=== PATIENT | male | born 2000 | race Caucasian/White ===

== ENCOUNTER 2021-04-27 16:42 | Emergency (ER) | payer OTHER ==
[~2021-04-27] VITALS: Ht 170.2 cm; Wt 81.7 kg
[2021-04-27] MEDS ORDERED: REMERON15 MG PO (16:56)
== END 2021-04-27 18:42 | disposition home or self-care (01) ==
LOC: ED 16:42
DX: S06.0X9A Concussion with loss of consciousness of unspecified duration, initial encounter (principal); Y04.8XXA Assault by other bodily force, initial encounter; F17.200 Nicotine dependence, unspecified, uncomplicated; Z79.899 Other long term (current) drug therapy
CPT/HCPCS: 70450; 70486; 99284-25

== ENCOUNTER 2022-02-13 09:07 | Emergency (ER) | payer OTHER ==
[~2022-02-13] VITALS: Ht 170.2 cm; Wt 72.9 kg
[~2022-02-13 09:07] MED LIST: REMERON15 MG PO
[2022-02-13] MEDS ORDERED: NAPROXEN375 MG PO (10:11)
[2022-02-13] MEDS ORDERED: PEPCID20 MG PO (14:15)
== END 2022-02-13 14:29 | disposition home or self-care (01) ==
LOC: ED 09:07
DX: K21.9 Gastro-esophageal reflux disease without esophagitis (principal); R10.84 Generalized abdominal pain; F17.200 Nicotine dependence, unspecified, uncomplicated; Z88.0 Allergy status to penicillin
CPT/HCPCS: 36415; 74177; 80053; 81001; 83605; 83690; 85025; 96375; 99284-25; J1885; J2405; J7030; Q9967

== ENCOUNTER 2022-06-07 18:49 | Emergency (ER) | payer OTHER ==
[~2022-06-07] VITALS: Ht 170.2 cm; Wt 72.9 kg
[~2022-06-07 18:49] MED LIST changes: +NAPROXEN375 MG PO; +PEPCID20 MG PO
[2022-06-07] MEDS ORDERED: CYCLOBENZAPRINE5 MG PO (20:58)
== END 2022-06-07 21:25 | disposition home or self-care (01) ==
LOC: ED 18:49
DX: M79.18 Myalgia, other site (principal); R10.9 Unspecified abdominal pain; Z79.899 Other long term (current) drug therapy; F17.200 Nicotine dependence, unspecified, uncomplicated
CPT/HCPCS: 36415; 74177; 80048; 81001; 83690; 85025; 99284-25; J1885; Q9967

== ENCOUNTER 2023-01-14 10:05 | Inpatient (IN) | payer OTHER ==
[~2023-01-14] VITALS: Ht 170.2 cm; Wt 76.7 kg
[~2023-01-14 10:05] MED LIST changes: +CYCLOBENZAPRINE5 MG PO; -REMERON15 MG PO; +REMERON30 MG PO
[2023-01-15] MEDS ORDERED: PHENERGAN25 MG/1 M1 IM (11:46)
[2023-01-15] MEDS ORDERED: ONDANSETRON ODT4 MG PO (11:46)
--- NOTE | 2023-01-15 21:48 | EKG ---
[facility] [address] [place], [place] [address] Signed Sinus tachycardia Otherwise normal ECG No previous ECGs available Confirmed by KP LEE MD ([id number]) on 01/15/2023 9:47:52 PM Electronically Signed By: KP LEE MD 01/15/23 2148 PATIENT NAME: LANDRY ZAVALA DAMARI Electrocardiogram DATE OF : 00 PHYSICIAN: KP LEE MD REPORT #: [id number] REPORT IS CONFIDENTIAL AND NOT TO BE RELEASED WITHOUT AUTHORIZATION
[2023-01-16] MEDS ORDERED: PEPCID20 MG PO (11:35)
[2023-01-16] MEDS ORDERED: [UNRECOGNIZED DRUG - OTHER] TOP (11:37)
[2023-01-16] MEDS ORDERED: PAXIL20 MG PO (11:38)
== END 2023-01-18 12:18 | disposition home or self-care (01) | DRG 439 ==
LOC: ED 10:05 → MS 13:23
PROVIDERS: ADMIT Internal Medicine; ATTEND Family Medicine
DX: K85.00 Idiopathic acute pancreatitis without necrosis or infection (principal); R65.10 Systemic inflammatory response syndrome (SIRS) of non-infectious origin without acute organ dysfunction; Z20.822 Contact with and (suspected) exposure to COVID-19; F43.10 Post-traumatic stress disorder, unspecified; F41.9 Anxiety disorder, unspecified; F90.9 Attention-deficit hyperactivity disorder, unspecified type; F17.200 Nicotine dependence, unspecified, uncomplicated; Z79.899 Other long term (current) drug therapy
CPT/HCPCS: 36415; 74177; 80048; 80053; 80076; 83690; 83735; 84478; 85025; 93005; 93010; A9270; C9113; C9803; G0480; J1170; J1200; J2405; J3480; J7030; J7120; Q9967; U0003

== ENCOUNTER 2023-01-23 20:38 | Emergency (ER) | payer OTHER ==
[~2023-01-23] VITALS: Ht 170.2 cm; Wt 72.9 kg
[~2023-01-23 20:38] MED LIST changes: +ONDANSETRON ODT4 MG PO; +PAXIL20 MG PO; +PHENERGAN25 MG/1 M1 IM; +[UNRECOGNIZED DRUG - OTHER] TOP
--- OUTSIDE RECORDS SUMMARY | 2023-01-23 20:46 | XMS ---
PreManage Notification: LANDRY ZAVALA Security Grid Inspector Events No recent Security Events currently on file CRITERIA MET - [facility] - 2 Visits in 30 Days CARE PROVIDERS There are no care providers on record at this time. [place] has no Care Guidelines for this patient. [facility] (12 MO.) [facility] NOTE: Visits indicate total known visits. ED/C VISIT TRACKING (12 MO.) [facility] COMPLAINT: - ABDOMINAL PAIN 01/14/2023 10:05 [facility] TYPE: Emergency COMPLAINT: - ABD PAIN, VOMITING 06/07/2022 18:50 [facility] [place] TYPE: Emergency COMPLAINT: - LT SIDE ABD PAIN DIAGNOSES: - Other shelter (current) drug therapy - Unspecified abdominal pain - Myalgia, other site - Nicotine dependence, unspecified, uncomplicated 02/13/2022 09:09 [facility] [place] TYPE: Emergency COMPLAINT: - ABDOMINAL PAIN DIAGNOSES: - Nicotine dependence, unspecified, uncomplicated - Gastro-esophageal reflux disease without esophagitis - Generalized abdominal pain - Allergy status to penicillin INPATIENT VISIT TRACKING (12 MO.) 01/14/2023 13:[address] [facility] [place] TYPE: Medical Surgical COMPLAINT: - ACUTE PANCREATITIS DIAGNOSES: - Nicotine dependence, unspecified, uncomplicated - Systemic inflammatory response syndrome (SIRS) of non-infectious origin without acute organ dysfunction - Idiopathic acute pancreatitis without necrosis or infection - Anxiety disorder, unspecified - Nicotine dependence, unspecified, uncomplicated - Acute pancreatitis without necrosis or infection, unspecified - Attention-deficit hyperactivity disorder, unspecified type - Other shelter (current) drug therapy - Idiopathic acute pancreatitis without necrosis or infection - Post-traumatic stress disorder, unspecified - Contact with and (suspected) exposure to COVID-19 - Post-traumatic stress disorder, unspecified - Contact with and (suspected) exposure to COVID-19 - Other buttermaker continuous churn (current) drug therapy - Anxiety disorder, unspecified - Attention-deficit hyperactivity disorder, unspecified type [email or web address]
== END 2023-01-24 15:03 | disposition short-term general hospital (02) ==
LOC: ED 20:38
DX: K85.92 Acute pancreatitis with infected necrosis, unspecified (principal); K86.89 Other specified diseases of pancreas; K86.3 Pseudocyst of pancreas; F43.10 Post-traumatic stress disorder, unspecified; F17.200 Nicotine dependence, unspecified, uncomplicated; Z79.899 Other long term (current) drug therapy
CPT/HCPCS: 36415; 74177; 80053; 81001; 82150; 83605; 83690; 83735; 84478; 85025; 87502; 96366; 96375; 96376; 99285-25; C9803; J1170; J1885; J2185; J2270; J2405; J7121; Q9967; U0003

== ENCOUNTER 2023-07-22 16:35 | Inpatient (IN) | payer OTHER ==
[~2023-07-22] VITALS: Ht 170.2 cm; Wt 72.2 kg
--- OUTSIDE RECORDS SUMMARY | ~2023-07-22 | XMS | Continuity of Care Document ---
Demographics + + + | Address | [address] | | | [place] [address] | + + + | Preferred Language | Unknown | + + + | Marital Status | Never | + + + | Religion Affiliation | Unknown | + + + | Race | White | + + + | Ethnic Group | Unknown | + + + Author + + + | Author | [facility] | + + + | Organization | [facility] | + + + | Address | [address] | | | [place] [address] | + + + | Phone | | + + + Care Team Providers + + + + | Care Expansion Joint Finisher Name | Role | Phone | + + + + Unavailable | Unavailable | + + + + Allergies No information. Encounters No information. Functional Status No information. Immunizations No information. Medications No information. Problems + + + + | date | description | facility | + + + + | 2022-06-07 18:50 | NICOTINE DEPENDENCE, | [facility] | | | UNSPECIFIED, UNCOMPLICATED | | + + + + | 2022-06-07 18:50 | MYALGIA, OTHER SITE | [facility] | + + + + | 2022-06-07 18:50 | UNSPECIFIED ABDOMINAL PAIN | [facility] | | | | | + + + + | 2022-06-07 18:50 | OTHER DETENTION (CURRENT) | [facility] | | | DRUG THERAPY | | + + + + | 2023-01-05 08:57 | GASTRO-ESOPHAGEAL REFLUX | [facility] | | | DISEASE WITHOUT ESOPHAGITIS | | | | | | + + + + | 2023-01-05 08:57 | OTH SYMPTOMS AND SIGNS | [facility] | | | INVOLVING THE CIR | | + + + + | 2023-01-14 13:23 | NICOTINE DEPENDENCE, | [facility] | | | UNSPECIFIED, UNCOMPLICATED | | + + + + | 2023-01-14 13:23 | ANXIETY DISORDER, | [facility] | | | UNSPECIFIED | | + + + + | 2023-01-14 13:23 | POST-TRAUMATIC STRESS | [facility] | | | DISORDER, UNSPECIFIED | | + + + + | 2023-01-14 13:23 | ATTENTION-DEFICIT | [facility] | | | HYPERACTIVITY DISORDER, | | | | UNSPECIF | | + + + + | 2023-01-14 13:23 | IDIOPATHIC ACUTE | [facility] | | | PANCREATITIS WITHOUT | | | | NECROSIS OR | | + + + + | 2023-01-14 13:23 | ACUTE PANCREATITIS WITHOUT | [facility] | | | NECROSIS OR INFECTION, | | | | UNSP | | + + + + | 2023-01-14 13:23 | SIRS OF NON-INFECTIOUS | [facility] | | | ORIGIN W/O ACUTE ORGAN DYSF | | | | | | + + + + | 2023-01-14 13:23 | OTHER DETENTION (CURRENT) | [facility] | | | DRUG THERAPY | | + + + + | 2023-01-23 20:39 | NICOTINE DEPENDENCE, | [facility] | | | UNSPECIFIED, UNCOMPLICATED | | + + + + | 2023-01-23 20:39 | POST-TRAUMATIC STRESS | [facility] | | | DISORDER, UNSPECIFIED | | + + + + | 2023-01-23 20:39 | ACUTE PANCREATITIS WITH | [facility] | | | INFECTED NECROSIS, UNSPECI | | + + + + | 2023-01-23 20:39 | PSEUDOCYST OF PANCREAS | [facility] | + + + + | 2023-01-23 20:39 | OTHER SPECIFIED DISEASES | [facility] | | | OF PANCREAS | | + + + + | 2023-01-23 20:39 | UPPER ABDOMINAL PAIN, | [facility] | | | UNSPECIFIED | | + + + + | 2023-01-23 20:39 | OTHER BAKER OPERATOR AUTOMATIC (CURRENT) | [facility] | | | DRUG THERAPY | | + + + + Procedures No information. Results/Labs No information. Social History No information. Vital Signs No information."
--- OUTSIDE RECORDS SUMMARY | ~2023-07-22 | XMS | Continuity of Care Document ---
Demographics + + + | Address | [address] | | | [place] [address] | + + + | Preferred Language | Unknown | + + + | Marital Status | Never | + + + | Taoism Affiliation | Unknown | + + + | Race | White | + + + | Ethnic Group | Unknown | + + + Author + + + | Author | [facility] | + + + | Organization | [facility] | + + + | Address | [address] | | | [place] [address] | + + + | Phone | | + + + Care Team Providers + + + + | Care Transferrer Name | Role | Phone | + [...] + + | 2022-06-07 18:50 | OTHER RESIDENTIAL (CURRENT) | [facility] | | | DRUG [...] + + | 2023-01-14 13:23 | OTHER RESIDENTIAL (CURRENT) | [facility] | | | DRUG [...] + + | 2023-01-23 20:39 | OTHER TAKE UP OPERATOR (CURRENT) | [facility] | | | DRUG THERAPY | | + + + + Procedures No information. Results/Labs No information. Social History No information. Vital Signs No information."
--- OUTSIDE RECORDS SUMMARY | ~2023-07-22 | XMS | Continuity of Care Document ---
Demographics + + + | Address | [address] | | | [place] [address] | + + + | Preferred Language | Unknown | + + + | Marital Status | Never | + + + | Religion Affiliation | Unknown | + + + | Race | White | + + + | Ethnic Group | Unknown | + + + Author + + + | Author | [facility] | + + + | Organization | [facility] | + + + | Address | [address] | | | [place] [address] | + + + | Phone | | + + + Care Team Providers + + + + | Care Top Cager Name | Role | Phone | + + + + Unavailable | Unavailable | + + + + Allergies and Intolerances + + + + + + | date | description | facility | reaction | severity | + + + + + + | (no date) | No Known Drug | [facility] | (no reaction) | (no severity) | | | Allergies | | | | + + + + + + Encounters No information. Functional Status No information. [...] + + | 2022-06-07 18:50 | OTHER PRISON (CURRENT) | [facility] | | | DRUG [...] + + | 2023-01-14 13:23 | OTHER PRISON (CURRENT) | [facility] | | | DRUG [...] + + | 2023-01-23 20:39 | OTHER PRISON (CURRENT) | [facility] | | | DRUG THERAPY | | + + + + Procedures No information. Results/Labs No information. Social History No information. Vital Signs No information."
[2023-07-22] MEDS ORDERED: HYDROXYZINE HCL50 MG PO (16:44)
[2023-07-22 16:51] LABS: BASOPHILS 0.4 % (0-2); EOSINOPHILS 1.1 % (0-6); HEMATOCRIT 43.1 % (35.0-50.0); HEMOGLOBIN 14.7 g/dL (12.0-18.0); LYMPHOCYTES 20.1 % (24-44); MCH 29.8 (27-36); MCHC 34.2 g/dl (30-36); MCV 87.1 fl (81-99); MONOCYTES 6.3 % (0-12); NEUTROPHILS 72.1 % (39-80); PLATELET COUNT 302 K/uL (140-440); RBC 4.95 M/ul (4.3-5.7); RDW 13.8 (10.5-15.0)
[2023-07-22 17:08] LABS: ALBUMIN/GLOBULIN RATIO 1.08 (1.1-2.4); ANION GAP 15.4 (7-21); BUN/CREATININE RATIO 14.77 (6.0-28.6); CALCIUM 9.5 mg/dL (8.5-10.1); CREATININE, SERUM 0.88 mg/dL (0.70-1.30); POTASSIUM 3.4 mmol/L (3.5-5.1); PROTEIN, TOTAL 7.7 g/dL (6.4-8.2)
[2023-07-22 17:08] LABS: BILIRUBIN, URINE NEGATIVE (negative); BLOOD/HGB, URINE NEGATIVE (Negative); KETONE, URINE NEGATIVE (Negative); LEUK ESTERASE, URINE NEGATIVE (negative); NITRITE, URINE NEGATIVE (negative); PH, URINE 6.5 (5-7)
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
[2023-07-22 22:46] VITALS: BP 114/63
[2023-07-23] VITALS (7 sets, daily range): BP systolic 95–121; BP diastolic 46–71
--- NOTE | 2023-07-23 00:06 | NUR ---
CALL LIGHT ANSWERED, pt ASKING FOR ADDITIONAL PAIN MEDICATION. PAIN MEDICATION NOT YET DUE, NONPHARMACOLOGICAL INTERVENTIONS OFFERED LIKE REPOSITIONING, ICE PACK, ECT. pt DECLINED, WARM BLANKET PROVIDED PER pt REQUEST. NO ADDITIONAL NEEDS OR CONCERNS, CALL LIGHT IN REACH. [facility] GUARDS ALSO IN ROOM.
--- NOTE | 2023-07-23 01:05 | NUR ---
CALL LIGHT ANSWERED, pt CALLED ASKING FOR PAIN MEDICATION. PRN DILAUDID GIVEN-SEE EMAR. pt ALSO REPORTS ITCHINESS, pt RECEIVED X1 BENADRYL DOSE IN ER, NOTHING FOR ITCHINESS AVAILABLE PER EMAR. LOTION OFFERED FOR ITCHING SKIN, pt DECLINED. pt EDUCATED ITCHINESS COULD BE FROM PRN PAIN MEDICATION, pt DISAGREES, STATING, "NO IT'S BECAUSE WHEN I GET SWEATY I GET ITCHY". COOL RAG PROVIDED TO WASH HIS FACE. NO ADDITIONAL NEEDS OR CONCERNS VERBALIZED, GUARDS X2 REMAINS IN ROOM.
--- NOTE | 2023-07-23 03:05 | NUR ---
PATIENT REPORTS 6/10 ABD PAIN, PRN PAIN MEDICATION GIVEN PER ORDER. PATIENT DENIES ANY NAUSEA. PATIENT DENIES ANY FURTHER NEEDS. CALL LIGHT IN REACH. IV INFUSING PER ORDER. X2 GUARDS REMAIN IN THE ROOM.
[2023-07-23 05:25] LABS: BASOPHILS 0.6 % (0-2); EOSINOPHILS 1.3 % (0-6); HEMATOCRIT 37.4 % (35.0-50.0); HEMOGLOBIN 12.7 g/dL (12.0-18.0); LYMPHOCYTES 30.7 % (24-44); MCH 29.7 (27-36); MCV 87.5 fl (81-99); MONOCYTES 6.3 % (0-12); NEUTROPHILS 61.1 % (39-80); PLATELET COUNT 269 K/uL (140-440); RBC 4.28 M/ul (4.3-5.7); RDW 13.5 (10.5-15.0)
--- NOTE | 2023-07-23 05:25 | NUR ---
in room with charge hand to collect vs, i&o's and start new iv as pt arrived to floor with ems field start. vss, prn pain medication given for reported 8/10 pain-see emar. field start left in place, second iv, 20g to right forearm, started by jordan lundy, tourniquet removed by charge hand. pt tolerated well. iv fluids resumed as directed. labs drawn from new iv and sent to lab. warm blanket provided, pt verbalizes he still feels itchiness, pt informed md should be arriving to floor soon for pt roundings, pt verbalized understanding. no additional needs or concerns, guards x2 remaisn in room for safety.
[2023-07-23 05:38] LABS: ALBUMIN 3.3 g/dL (3.4-5.0); ALBUMIN/GLOBULIN RATIO 1.1 (1.1-2.4); ANION GAP 11.7 (7-21); BUN/CREATININE RATIO 10.34 (6.0-28.6); CALCIUM 8.4 mg/dL (8.5-10.1); CREATININE, SERUM 0.87 mg/dL (0.70-1.30); POTASSIUM 3.7 mmol/L (3.5-5.1); PROTEIN, TOTAL 6.3 g/dL (6.4-8.2)
--- NOTE | 2023-07-23 06:32 | NUR ---
DR PONCE AT RN STATION, MADE AWARE OF pt's REPORTED ITCHINESS, pt RECEIVED X1 DOSE OF BENADRYL IN ED. ALSO MADE AWARE THAT HIS LAST REPORTED BM WAS APPROX 1 WEEK AGO. NO NEW ORDERS RECEIVED AT THIS TIME, MD GOING TO ROOM TO ASSESS pt.
--- NOTE | 2023-07-23 07:25 | NUR ---
RECEIVED REPORT FROM DIRECTOR CHINA RN. PT IS IN BED WITH MILLY STANDING AT BEDSIDE. PT REQUESTING PAIN MEDICATION AND IV BENADRYL. CALL LIGHT WITHIN REACH.
--- NOTE | 2023-07-23 07:50 | NUR ---
IV PAIN MEDICAION AND BENADRYL GIVEN REQUESTED. IV BAG OF FLUIDS REPLACED. ASSESSMENT COMPLETED. CALL LIGHT WITHIN REACH. NO FURTHER NEEDS VOICED AT THE MOMENT.
--- NOTE | 2023-07-23 09:45 | NUR ---
ENTERED PATIENT ROOM. PATIENT REQUESTING IV PAIN MEDICATION TO NOT BE PUT THROUGH IV TUBING AND THE IV PUMP BE STOPPED. PATIENT EDUCATED ABOUT THE EFFECIENCY OF IV PAIN MEDICATION AND HOW IT DOES NOT IMPACT EFFICTIVNESS IF PUSHED THRUOGH THE IV TUBING.
--- NOTE | 2023-07-23 10:10 | NUR ---
PT NOT IN ROOM. LEFT GUIDEPOST AND CONTACT CARD. HEMAD.
--- NOTE | 2023-07-23 11:09 | NUR ---
ROUNDED ON PT. BACK FROM MRI. PT REQUESTING PAIN MEDICATION. CALL LIGHT WITHIN REACH.
--- NOTE | 2023-07-23 12:30 | NUR ---
ROUNDED ON PATIENT. PATIENT IS RESTING IN BED QUIETLY. PATIENT COMPLAINS OF PAIN /. CALL LIGHT WITHIN REACH.
--- NOTE | 2023-07-23 12:41 | NUR ---
MED REC COMPLETE
--- NOTE | 2023-07-23 13:45 | NUR ---
ROUNDED ON PATIENT. GAVE PATIENT PRN PAIN MEDICATION PER PATIENT REQUEST. PROVIDED PATIENT WITH WARM BLANKET. NO FURTHER NEEDS VOICED. CALL LIGHT WITHIN REACH.
--- NOTE | 2023-07-23 15:39 | NUR ---
PAGED DR. PONCE ABOUT PT HEART RATE DIPPING INTO 30S. TELEPHONE ORDER GIVEN TO MODIFY DILAUDID TO 4Q HOURS PRN.
--- NOTE | 2023-07-23 16:18 | NUR ---
NOTIFIED BY CCU PT HEART RATE ON TELE 30. PT BRADYCARDIC 40'S, ASYMPTOMATIC. TELEPHONE ORDER FOR EKG AND HOSPITALIST CONSULT. NO FURTHER ORDERS AT THIS TIME.
--- NOTE | 2023-07-23 18:15 | NUR ---
CLEARED PATIENTS PUMP AND DOCUMENTED I&OS. EMPTIED PATIENT URINAL. PATIENT REQUESTING IV PAIN MEDICATION. NO FURTHER NEEDS VOICED.
--- NOTE | 2023-07-23 19:45 | NUR ---
Isidro pt, sobia at bedside. Pt watching tv. NPO
--- NOTE | 2023-07-23 20:06 | EKG ---
[facility] [address] [place] [address] Signed Junctional bradycardia Abnormal ECG When compared with ECG of 15-JAN-2023 18:55, Junctional rhythm has replaced Sinus rhythm Vent. rate has decreased BY 90 BPM Confirmed by ABIGAIL SHEPHERD MD ([id number]) on 07/23/2023 8:06:06 PM Electronically Signed By: ABIGAIL SHEPHERD 07/23/232005 PATIENT NAME: LANDRY ZAVALA Electrocardiogram DATE OF : 00 PHYSICIAN: ABIGAIL SHEPHERD REPORT #: [id number] REPORT IS CONFIDENTIAL AND NOT TO BE RELEASED WITHOUT AUTHORIZATION
--- NOTE | 2023-07-23 20:43 | NUR ---
PT IN BED. GUARDS IN ROOM WITH PT.
--- NOTE | 2023-07-23 21:00 | NUR ---
pt given Clalcium gluconate, pt say he is in pain when he urinate.
[2023-07-23 22:15] LABS: ANION GAP 12.6 (7-21); BUN/CREATININE RATIO 8.97 (6.0-28.6); CALCIUM 8.9 mg/dL (8.5-10.1); CREATININE, SERUM 0.78 mg/dL (0.70-1.30); MAGNESIUM 2.2 mg/dL (1.8-2.4); POTASSIUM 3.6 mmol/L (3.5-5.1)
[2023-07-24] VITALS (7 sets, daily range): BP systolic 96–148; BP diastolic 48–90
[2023-07-24 05:38] LABS: BASOPHILS 0.7 % (0-2); EOSINOPHILS 3.7 % (0-6); HEMATOCRIT 37.7 % (35.0-50.0); HEMOGLOBIN 12.9 g/dL (12.0-18.0); LYMPHOCYTES 38.9 % (24-44); MCH 29.5 (27-36); MCHC 34.1 g/dl (30-36); MCV 86.6 fl (81-99); MONOCYTES 8.1 % (0-12); NEUTROPHILS 48.6 % (39-80); PLATELET COUNT 241 K/uL (140-440); RBC 4.35 M/ul (4.3-5.7); RDW 13.3 (10.5-15.0)
[2023-07-24 05:52] LABS: ALBUMIN 3.1 g/dL (3.4-5.0); ALBUMIN/GLOBULIN RATIO 1.07 (1.1-2.4); ANION GAP 10.6 (7-21); BILIRUBIN, TOTAL 0.7 ng/dL (0.2-1.0); BUN/CREATININE RATIO 8.23 (6.0-28.6); CALCIUM 8.6 mg/dL (8.5-10.1); CREATININE, SERUM 0.85 mg/dL (0.70-1.30); MAGNESIUM 1.9 mg/dL (1.8-2.4); PHOSPHORUS, INORGANIC 4.5 mg/dL (2.5-4.9); POTASSIUM 3.6 mmol/L (3.5-5.1)
--- NOTE | 2023-07-24 07:50 | NUR ---
RECEIVED REPORT FROM HEALTH MANAGEMENT CONSULTANT RN. PT IN BED SLEEPING WITH EYES CLOSED. RESPIRATIONS EVEN AND REGULAR. IV ABX STARTED. UPON WAKING, PATIENT REPORTED SEVERE PAIN IN HIS ABDOMEN AND REQUESTED IV PAIN MEDICATIONS. ADVISED PATIENT THAT THIS RN WOULD ADMINISTER THE PAIN MEDICATIONS. NO FURTHER NEEDS VOICED. CALL LIGHT WITHIN REACH.
--- NOTE | 2023-07-24 10:30 | NUR ---
CURTAINS CLOSED AND LIGHTS OFF. DID NOT DISTURB. PRAYED FOR HEALING OF BODY AND SPIRIT.
--- NOTE | 2023-07-24 13:02 | NUR ---
07/24/23 1302 Dahlia Narayanan 1241- PT ARRIVED TO PACU, SUPINE POSITION WITH OPA AND O2 AT 8 L PER MASK. PT NON REACTIVE AT THIS TIME. ALL MONITORS APPLIED. LR INFUSING TO IV IN LAC, DRESSING CLEAN DRY AND INTACT. IV TO RFA IN PLACE, SALINE LOCK. INCISIONS TO ABD DRESSED WITH SMALL AMOUNT OF BLOOD DRAINAGE ON THE UPPER MIDLINE ABD INCISION, OTHER 3 SITES CDI. EOCI OFFICER AT BEDSIDE. 1244- PT RESPONSIVE, SHAKING, ARMS OUTSTRETCHED. PT OPENS MOUTH AND STARTS COUGHING. REMOVED OPA ALL PT BIT DOWN AND HELD ONTO FOR APPROX A MINUTE. SMALL AMOUNT OF BLOOD ON END OF OPA. MASK REMOVED AT THIS TIME. 1255- PT OPEN EYEYS AND LOOKED AROUND, DENIES NAUSEA. WILL CONTINUE TO MONITOR. PT RESTING COMFORTABLY.
--- NOTE | 2023-07-24 13:18 | NUR ---
PATIENT S/P SHABBIR. THE PATIENT WILL RETURN TO EOCI WHEN MEDICALLY STABLE.
[2023-07-24] MEDS ORDERED: HYDROCODON-ACE1 EAC8 PO (14:42)
--- NOTE | 2023-07-24 17:03 | NUR ---
PT WAS ABLE TO EAT SNACK. REPORTS NO NAUSEA. TOLERATING PO WELL. PT ALSO VOIDED 600CC URINE SINCE BEING BACK ON THE UNIT. REPORT CALLED TO CHRIS RAMIREZ AT [facility]. LAST SET OF VITALS OBTAINED AND IV AND TELE REMOVED.
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
--- NOTE | 2023-07-28 11:10 | OR ---
[facility] [address] [place], [place] [address] Signed DATE OF OPERATION: 07/24/2023 SURGEON: Audrey Ponce MD PREOPERATIVE DIAGNOSIS: Biliary pancreatitis. POSTOPERATIVE DIAGNOSIS: Biliary pancreatitis. PROCEDURE: Laparoscopic cholecystectomy with intraoperative cholangiogram. ESTIMATED BLOOD LOSS: Minimal. FINDINGS: Landry had a gallbladder nearly full of yellow cholesterol stones. Our photograph only shows the larger stones. The much smaller stones were not included in the photograph by our circulating nurse. He has cholesterolosis as well. Unfortunately, he had very little in the way of inflammatory changes around the triangle of Calot. Intraoperative cholangiogram was completely unremarkable. We did not see any filling defects and the contrast flowed quite nicely into the duodenum. INDICATIONS: Landry is a 22-year-old gentleman from our [facility] [place]. In December of this year, he presented with rather significant pancreatitis with a large 14 cm area concerning for necrotic debris. He went over to [facility] in [place], [place]. He tells me they attempted to drain that collection, but it was unsuccessful because the fluid was too thick. He went back to the half-way apparently with nasoenteric feeding tube and eventually improved. Three days prior to this admission, he started to develop recurrent epigastric abdominal pain with nausea. He was brought to our local emergency room here at [facility] in [place], [place]. He had mild tenderness in the epigastric area. White count was borderline at 10.4. However, his liver function tests were quite elevated as well as the lipase. I have been asked to admit him as a general surgeon on-call. He had undergone a CT scan and there were several stones dependently in the neck of the gallbladder. He had minimal stranding around the head of the pancreas and the pseudocyst/necrotic area had resolved in the midportion of the pancreas. The pancreatic duct is still a little dilated at 4 mm. It looked like the common bile duct was just a little dilated as well. He had an Electronically Signed By: AUDREY PONCE MD 07/25/23 0757 Electronically Signed By: AUDREY PONCE MD 07/29/23 0732 PATIENT NAME: LANDRY ZAVALA OPERATIVE REPORT DATE OF : 00 REPORT #: [id number] PHYSICIAN: AUDREY PONCE MD PCP: CHRISTIANE MATAMOROS REPORT IS CONFIDENTIAL AND NOT TO BE RELEASED WITHOUT AUTHORIZATION [facility] [address] [place], [place] [address] Signed ultrasound performed and he had multiple mobile stones and the common bile duct was about 7 mm. The gallbladder wall was not thickened. There was no pericholecystic fluid. By the following day, his laboratory work was markedly improved and by the 3rd day this morning, it was even better. We had cut back on his Dilaudid as we noticed he was in sinus bradycardia dipping clear down into the 30s. We added a little Toradol which seem to help. We did have our hospitalist service see him with respect to the above. They felt he was safe to go to surgery. I brought Dai brochure on the gallbladder. We had looked at it page by page. I explained to him the location and function of the gallbladder with respect to the pancreas. We reviewed gallstones as well. We discussed laparoscopic versus open cholecystectomy. We also reviewed ERCP in the brochure as well. We also reviewed the intraoperative cholangiogram. He understands expected intraop and postop course. There is risk including, but not limited to bleeding, infection, scarring, change in contour of the skin, damage to bowel, damage to main bile duct, incisional hernias and other unforeseen comorbidities. He had expressed understanding and wished to proceed. PROCEDURE NOTE: I had met with Landry once again in our preop area. He also met with our anesthesia provider. After this, we took him into the operating room and placed him in the supine position under general endotracheal tube anesthesia. He was already on preoperative antibiotics along with subcutaneous Lovenox. SCDs were utilized. He was prepped and draped in the usual sterile fashion. All trocars were placed in their usual positions. With him pharmacologically paralyzed, I could not feel the liver edge nor the gallbladder nor the pancreas. The trocars were then placed in their usual positions under direct visualization of the camera without difficulty. He has a little bit of fat in his liver. He had just a little bit of inflammatory changes down around the neck of the gallbladder. The gallbladder was grasped and elevated in the right upper quadrant. We took pictures throughout for photodocumentation. The triangle of Calot was carefully dissected free with our [place] dissector. The cystic artery had been isolated, clipped and divided. We passed our intraoperative cholangiocatheter into the cystic duct. The intraoperative cholangiogram was found to be unremarkable. The contrast flow quite readily through the ampulla of Vater. There were no filling defects. We did not fill the pancreatic duct. The cystic duct stump was secured with a PDS Endoloop and two clips to liliana its location. We then slowly and carefully removed the gallbladder from the gallbladder fossa with the help of cautery and placed it into an EndoCatch bag. After this, we used our laparoscopic suturing device to pass 0-Vicryl suture on either side of the fascia of the subxiphoid trocar site. This was tied down to close this fascia primarily. The gas was allowed to escape and all the remaining trocars were removed along with the gallbladder. The gallbladder was passed off the field to our circulating nurse for photodocumentation. The fascia of the supraumbilical trocar site was closed with interrupted [id number] and simple 0-Vicryl sutures. Local anesthetic was injected into all trocar sites. The skin and dermis of each trocar site Electronically Signed By: AUDREY PONCE MD 07/25/23 0757 Electronically Signed By: AUDREY PONCE MD 07/29/23 0732 PATIENT NAME: LANDRY ZAVALA OPERATIVE REPORT DATE OF : 00 REPORT #: [id number] PHYSICIAN: AUDREY PONCE MD PCP: CHRISTIANE MATAMOROS REPORT IS CONFIDENTIAL AND NOT TO BE RELEASED WITHOUT AUTHORIZATION [address] [address] Signed was closed with interrupted 3-0 Monocryl and subcuticular stitches. One-half inch Steri-Strips were applied to all incisions. This was covered by dry gauze and tape. Landyr was then awakened from his anesthesia, extubated in the OR, and taken to recovery room in stable condition. Audrey Ponce MD ALB/AGUSTÍNL /[id number] cc: MD Christiane Davila FNP Copies: AUDREY PONCE MD, MICHELE R FNP ~ Electronically Signed By: AUDREY PONCE MD 07/25/23 0757 Electronically Signed By: AUDREY PONCE MD 07/29/23 0732 PATIENT NAME: LANDRY ZAVALA DAMARI OPERATIVE REPORT DATE OF : 00 REPORT #: [id number] PHYSICIAN: AUDREY PONCE MD PCP: CHRISTIANE MATAMOROS REPORT IS CONFIDENTIAL AND NOT TO BE RELEASED WITHOUT AUTHORIZATION
--- NOTE | 2023-07-29 17:18 | PATH ---
[facility] [address] [place], [place] [address] Signed SPECIMEN(S): A GALLBLADDER AND GALLSTONES SPECIMEN SOURCE: A. GALLBLADDER AND GALLSTONES CLINICAL HISTORY: Gallbladder and gallstones. Biliary colic, cholelithiasis, pancreatitis. FINAL PATHOLOGIC DIAGNOSIS: Gallbladder, cholecystectomy: - Chronic cholecystitis with cholelithiasis. - Benign cystic duct lymph node. - No malignancy identified. [facility] MICROSCOPIC EXAMINATION: Histologic sections of all submitted blocks are examined by light microscopy. These findings, together with the gross examination, support the pathologic diagnosis. [facility] GROSS DESCRIPTION: The specimen, labeled and designated "nehemias Hook," is received in formalin and consists of Specimen: Previously opened gallbladder. Dimensions: 7.5 x 2.2 cm. Serosa: Violaceous, smooth. Cystic Duct: Inked, unobstructed. Calculi: Numerous yellow gallstones within the gallbladder that range in size from 0.1 to 1.4 cm in greatest dimension. Mucosa: Green and velvety. Wall thickness: 0.4 cm. Lymph node: One possible pericystic lymph node that measure 0.8 cm in greatest dimension is identified. Possible lymph node is bisected and entirely submitted. Additional: None. Pony Ride Attendant sections are submitted in (A1). JS (under the direct supervision of a pathologist) The Gross Description was prepared using a voice recognition system. The report was reviewed for accuracy; however, sound-alike word errors, addition and/or deletions may occur. If there is any PATIENT NAME: LANDRY HOOK PATHOLOGY DATE OF : 00 REPORT #: [id number] PHYSICIAN: AMBER RANDLE PCP: CHRISTIANE MATAMOROS REPORT IS CONFIDENTIAL AND NOT TO BE RELEASED WITHOUT AUTHORIZATION [address], [place] [address] Signed question about this report, please contact Client Services. PERFORMING LABORATORY: Technical component was performed by [facility], [address] [place] [id number] (CLIA# [id number]). Professional interpretation was performed by [facility], [address] [place] [id number] (CLIA#: [id number]). Diagnostician: Yoandy Campbell MD Pathologist Electronically Signed 07/29/2023 Copies: ~ PATIENT NAME: LANDRY HOOK PATHOLOGY DATE OF : 00 REPORT #: [id number] PHYSICIAN: AMBER RANDLE PCP: CHRISTIANE MATAMOROS REPORT IS CONFIDENTIAL AND NOT TO BE RELEASED WITHOUT AUTHORIZATION
== END 2023-07-24 17:10 | disposition home or self-care (01) | DRG 419 ==
LOC: ED 16:35 → MS 21:19
PROVIDERS: Emergency Medicine; Family Medicine; ADMIT Colon & Rectal Surgery; ATTEND Internal Medicine
PROC: BF141ZZ Fluoroscopy of Gallbladder, Bile Ducts and Pancreatic Ducts using Low Osmolar Contrast (ICD-10-PCS; 2023-07-24)
PROC: 0FT44ZZ Resection of Gallbladder, Percutaneous Endoscopic Approach (ICD-10-PCS; principal; 2023-07-24 10:15)
DX: K85.10 Biliary acute pancreatitis without necrosis or infection (principal); K80.50 Calculus of bile duct without cholangitis or cholecystitis without obstruction; K59.00 Constipation, unspecified; F43.10 Post-traumatic stress disorder, unspecified; F41.9 Anxiety disorder, unspecified; R00.1 Bradycardia, unspecified; F90.9 Attention-deficit hyperactivity disorder, unspecified type; F17.210 Nicotine dependence, cigarettes, uncomplicated; K80.20 Calculus of gallbladder without cholecystitis without obstruction; F12.90 Cannabis use, unspecified, uncomplicated; R74.01 Elevation of levels of liver transaminase levels; E83.42 Hypomagnesemia; F15.90 Other stimulant use, unspecified, uncomplicated; E83.51 Hypocalcemia; Z79.899 Other long term (current) drug therapy; Z87.81 Personal history of (healed) traumatic fracture
CPT/HCPCS: 00790; 36415; 74177; 74183; 74300; 76705; 80048; 80053; 81003; 83690; 83735; 84100; 84478; 85025; 93005; 93010; 93041; 94760; 96361; 96375; 96376; 99285-25; A9270; A9579; C9113; J0131; J0696; J1170; J1200; J1650; J1885; J2001; J2300; J2405; J2704; J3475; J3490; J7030; J7121; Q9967

== ENCOUNTER 2024-11-03 13:48 | Emergency (ER) | payer OTHER ==
[~2024-11-03] VITALS: Ht 170.2 cm; Wt 77.2 kg
[~2024-11-03 13:48] MED LIST changes: +HYDROCODON-ACE1 EAC8 PO; +HYDROXYZINE HCL50 MG PO
[2024-11-03] MEDS ORDERED: PANTOPRAZOLE SODIUM 40 MG/10 ML VIAL IV ONE (14:00)
[2024-11-03] MEDS ORDERED: ondansetron HCL 4 MG/2 ML VIAL IV ONE (14:00)
[2024-11-03 14:03] LABS: BASOPHILS 0.1 % (0-2); EOSINOPHILS 0.1 % (0-6); HEMATOCRIT 42.4 % (35.0-50.0); HEMOGLOBIN 14.7 g/dL (12.0-18.0); LYMPHOCYTES 5.6 % (24-44); MCH 30.4 (27-36); MCHC 34.6 g/dl (30-36); MCV 87.7 fl (81-99); MONOCYTES 6.2 % (0-12); PLATELET COUNT 315 K/uL (140-440); RBC 4.84 M/ul (4.3-5.7); RDW 12.8 (10.5-15.0)
[2024-11-03 14:18] LABS: ANION GAP 14.4 (7-21); BILIRUBIN, TOTAL 0.5 ng/dL (0.2-1.0); BUN/CREATININE RATIO 8.69 (6.0-28.6); CALCIUM 9.1 mg/dL (8.5-10.1); CREATININE, SERUM 1.15 mg/dL (0.70-1.30); POTASSIUM 3.4 mmol/L (3.5-5.1)
[2024-11-03] MEDS ORDERED: MELATONIN5 M2 PO (14:25)
[2024-11-03] MEDS ORDERED: FAMOTIDINE 20 MG/ 2 ML VIAL IV ONE (14:45)
[2024-11-03] MEDS ORDERED: MORPHINE SULFATE 4 MG/ML VIAL IV ONE (14:45)
[2024-11-03] MEDS ORDERED: CLEOCIN HCL300 MG PO (17:22)
[2024-11-03] MEDS ORDERED: clindamycin HCL 300 MG CAP PO ONE (17:30)
[2024-11-03] MEDS ORDERED: HYDROCODONE/ACETA 5/325 TAB PO ONE (17:30)
[2024-11-03 17:43] VITALS: BP 120/81
== END 2024-11-03 17:44 | disposition home or self-care (01) ==
LOC: ED 13:48
PROVIDERS: Emergency Medicine
DX: K92.0 Hematemesis (principal); J02.9 Acute pharyngitis, unspecified; F43.10 Post-traumatic stress disorder, unspecified; F17.200 Nicotine dependence, unspecified, uncomplicated; Z79.899 Other long term (current) drug therapy
CPT/HCPCS: 36415; 70491; 74177; 80053; 83690; 85025; 99284-25; J2270; J2405; J2470

== ENCOUNTER 2025-02-16 21:27 | Emergency (ER) | payer OTHER ==
[~2025-02-16] VITALS: Ht 170.2 cm; Wt 83.0 kg
[~2025-02-16 21:27] MED LIST changes: +CLEOCIN HCL300 MG PO; +MELATONIN5 M2 PO
[2025-02-16] MEDS ORDERED: INSULIN GL100 UNIT/1 SUB-Q (21:46)
[2025-02-16] MEDS ORDERED: NOVOLIN 70100 UNIT/2 (21:48)
[2025-02-16] MEDS ORDERED: METFORMIN HCL1000 M1 PO (21:49)
[2025-02-16] MEDS ORDERED: NAPROXEN375 MG (21:49)
[2025-02-16 22:16] LABS: BASOPHILS 0.8 % (0-2); EOSINOPHILS 1.1 % (0-6); HEMATOCRIT 41.3 % (35.0-50.0); HEMOGLOBIN 14.4 g/dL (12.0-18.0); LYMPHOCYTES 38.5 % (24-44); MCH 30.6 (27-36); MCV 87.6 fl (81-99); MONOCYTES 6.2 % (0-12); NEUTROPHILS 53.4 % (39-80); PLATELET COUNT 316 K/uL (140-440); RBC 4.71 M/ul (4.3-5.7); RDW 13.4 (10.5-15.0)
[2025-02-16 22:22] LABS: ALBUMIN 3.7 g/dL (3.4-5.0); ALBUMIN/GLOBULIN RATIO 1.12 (1.1-2.4); BILIRUBIN, TOTAL 0.4 mg/dL (0.2-1.0); BUN/CREATININE RATIO 21.34 (6.0-28.6); CALCIUM 8.8 mg/dL (8.5-10.1); CREATININE, SERUM 0.89 mg/dL (0.70-1.30)
[2025-02-17 00:13] VITALS: BP 131/76
== END 2025-02-17 00:15 | disposition other institution, planned readmission (95) ==
LOC: ED 21:27
PROVIDERS: Internal Medicine
DX: S00.03XA Contusion of scalp, initial encounter (principal); F43.10 Post-traumatic stress disorder, unspecified; E11.9 Type 2 diabetes mellitus without complications; F17.200 Nicotine dependence, unspecified, uncomplicated; W22.01XA Walked into wall, initial encounter; Z79.4 Long term (current) use of insulin; Z79.84 Long term (current) use of oral hypoglycemic drugs; Z88.1 Allergy status to other antibiotic agents
CPT/HCPCS: 36415; 70450; 72125; 80053; 85025; 99284-25

== ENCOUNTER 2025-03-30 15:16 | Emergency (ER) | payer OTHER ==
[~2025-03-30] VITALS: Ht 170.2 cm; Wt 129.0 kg
[~2025-03-30 15:16] MED LIST changes: +INSULIN GL100 UNIT/1 SUB-Q; +METFORMIN HCL1000 M1 PO; +NAPROXEN375 MG; +NOVOLIN 70100 UNIT/2
[2025-03-30 16:37] VITALS: BP 122/76
== END 2025-03-30 16:37 | disposition home or self-care (01) ==
LOC: ED 15:16
DX: S93.402A Sprain of unspecified ligament of left ankle, initial encounter (principal); Y93.67 Activity, basketball; Y92.149 Unspecified place in prison as the place of occurrence of the external cause; F43.10 Post-traumatic stress disorder, unspecified; E11.9 Type 2 diabetes mellitus without complications; F17.200 Nicotine dependence, unspecified, uncomplicated; Z88.1 Allergy status to other antibiotic agents; Z79.4 Long term (current) use of insulin; Z79.84 Long term (current) use of oral hypoglycemic drugs; Z79.899 Other long term (current) drug therapy; X50.1XXA Overexertion from prolonged static or awkward postures, initial encounter
CPT/HCPCS: 73610; 99283

== ENCOUNTER 2025-09-21 18:59 | Emergency (ER) | payer OTHER ==
[~2025-09-21] VITALS: Ht 170.2 cm; Wt 75.0 kg
[2025-09-21] MEDS ORDERED: CEPHALEXIN500 M1 PO (19:52)
[2025-09-21] MEDS ORDERED: BACTRIM DS TAB1 EACH PO (19:52)
[2025-09-21] MEDS ORDERED: CEPHALEXIN MONOHYDRATE 500 MG HOME.PACK PO ONE (20:00)
[2025-09-21] MEDS ORDERED: TRIMETHOPRIM/SULFAMETHOXAZOLE 1 EA HOME.PACK PO ONE (20:00)
[2025-09-21 20:17] VITALS: BP 116/77
== END 2025-09-21 20:26 | disposition home or self-care (01) ==
LOC: ED 18:59
DX: R21 Rash and other nonspecific skin eruption (principal); E11.9 Type 2 diabetes mellitus without complications; F17.200 Nicotine dependence, unspecified, uncomplicated; Z79.4 Long term (current) use of insulin; Z79.899 Other long term (current) drug therapy
CPT/HCPCS: 99282; A9270